=== PATIENT | male | born 2000 | race Hispanic/Latino ===

== ENCOUNTER 2025-02-11 08:28 | Emergency (ER) | payer OTHER, SELFPAY ==
[2025-02-11 08:47] VITALS: BP 115/73; PULSE 62; RESP 20; TEMP 36.6; O2SAT 99
--- NOTE | 2025-02-11 09:06 | ED.GENADULT ---
HPI - General Adult General Chief complaint: Wound/Laceration Stated complaint: laceration Time Seen by Provider: 02/11/25 08:48 History of Present Illness HPI narrative: 24-year-old male present to the emergency department for laceration to his right hand. Patient was working with a corn harvesting machine and accidentally cut his right hand. Patient denies any associated numbness or weakness. Patient's tetanus was up-to-date. Related Data Allergies Allergy/AdvReac Type Severity Reaction Status Date / Time No Known Allergies Allergy Verified 02/11/25 08:46 Review of Systems Review of Systems: All systems reviewed & are unremarkable except as noted in HPI and below Exam Narrative: APPEARANCE: Well appearing, no pain, no distress, well-nourished. HEAD: normocephalic, atraumatic. EYES: PERRLA/EOMI, conjunctivae clear. NOSE: Normal no drainage EARS:TMS clear with good light reflex. THROAT: Pharynx clear, no exudate. NECK: Supple. No adenopathy, no masses. RESPIRATORY: Airway patent, respirations nonlabored. Clear to auscultation bilaterally, no rales, rhonchi, wheezing. CARDIOVASCULAR: Regular rate and rhythm without murmurs rubs or gallops. ABDOMINAL: Soft, nontender, nondistended, normal bowel sounds MUSCULOSKELETAL: Moves all extremities. Strength/ROM intact, No edema, No calf tenderness. NEURO: Alert. Cranial nerves II through XII intact. Good gait. Good coordination SKIN: 4 cm Laceration to dorsum of right hand Course Vital Signs Vital signs: Vital Signs Temperature 97.9 F 02/11/25 08:47 Pulse Rate 62 02/11/25 08:47 Respiratory Rate 20 02/11/25 08:47 Blood Pressure 115/73 02/11/25 08:47 Pulse Oximetry 99 02/11/25 08:47 Oxygen Delivery Room Air 02/11/25 08:47 Temperature 97.9 F 02/11/25 09:52 Pulse Rate 78 02/11/25 09:52 Respiratory Rate 16 02/11/25 09:52 Blood Pressure 126/80 02/11/25 09:52 Pulse Oximetry 100 02/11/25 09:52 Oxygen Delivery Room Air 02/11/25 08:47 Procedures Laceration Laceration 1: Time: 09:29 Site: upper extremity Side (If applicable): right Size (cm): 4 Description: stellate and flap Depth: simple, single layer Local Anesthetic: lidocaine 1% and with epi Amount of anesthesia used (mL): 5 Pre-repair: wound explored and irrigated ====== Skin Level ====== Skin layer closed with: nylon Size (cm): 4-0 Number of sutures: 5 Technique: simple, interrupted ====== Subcutaneous Layer ====== ====== Muscle Layer ====== ====== Tendon Layer ====== Medical Decision Making MDM Narrative Medical decision making narrative: 24-year-old male present to the emergency department for evaluation for laceration to his right hand. During suturing patient did have a vasovagal episode at patient was placed in Trendelenburg and quickly regained consciousness. Laceration was repaired as described in the procedure note. Patient's tetanus was up-to-date. Patient and visitor were updated on wound care. All questions concerns were addressed. Differential Diagnosis Differential Diagnosis: Vasovagal syncope, hand laceration, tendon injury Vital Signs Vital Signs: Vital Signs Temperature 97.9 F 02/11/25 08:47 Pulse Rate 62 02/11/25 08:47 Respiratory Rate 20 02/11/25 08:47 Blood Pressure 115/73 02/11/25 08:47 Pulse Oximetry 99 02/11/25 08:47 Oxygen Delivery Room Air 02/11/25 08:47 Temperature 97.9 F 02/11/25 09:52 Pulse Rate 78 02/11/25 09:52 Respiratory Rate 16 02/11/25 09:52 Blood Pressure 126/80 02/11/25 09:52 Pulse Oximetry 100 02/11/25 09:52 Oxygen Delivery Room Air 02/11/25 08:47 Discharge Plan Discharge Clinical Impression: Laceration Patient Disposition: Home Condition: Stable Instructions: Antibiotic Form, Care For Your Stitches (ED), Laceration (ED) Additional Instructions: Sutures need to be removed in 7-10 days. Wound care as directed. Have close follow-up with your primary care physician. Patient Language: Kiswahili Follow-up/Referrals: UNKNOWN,DOCTOR [Primary Care Provider] -
[2025-02-11 09:52] VITALS: BP 126/80; PULSE 78; RESP 16; TEMP 36.6; O2SAT 100
== END 2025-02-11 09:54 | disposition home or self-care (01) ==
PROVIDERS: Emergency Provider Emergency Medicine
DX: S61.411A Laceration without foreign body of right hand, initial encounter (principal); R55 Syncope and collapse; W30.89XA Contact with other specified agricultural machinery, initial encounter
CPT/HCPCS: 12002; 99282